=== PATIENT | female | born 1935 | race African-American/Black ===

== ENCOUNTER 2017-05-06 15:53 | Observation (INO) | payer BC ==
[~2017-05-06] VITALS: Ht 157.5 cm; Wt 63.5 kg
[~2017-05-06 15:53] MED LIST: ALLO100T PO; AMLO10TA80 PO; SIMV20TA6 PO
[2017-05-06] MEDS ORDERED: SODIUM CHLORIDE 0.9% 1,000 ML IV ONE (16:08)
[2017-05-06 17:15] LABS: HEMOGLOBIN. 10.7 g/dL (12.0-16.0); MEAN CORPUSCULAR HEMOGLOBIN 30.7 pg (28.0-32.0); MEAN CORPUSCULAR VOLUME 94.7 fL (81.0-99.0); MEAN PLATELET VOLUME 8.5 fl (7.4-10.4); PLATELET 226 x1000/uL (130-400); RED BLOOD CELL COUNT 3.48 mill/uL (4.2-5.4); RED CELL DISTRIBUTION WIDTH 13.8 % (11.6-14.6)
[2017-05-06 17:20] LABS: CHLORIDE 103 mEq/L (98-107); INR 1.1; PROTHROMBIN TIME 11.4 sec (9.4-11.6)
[2017-05-06 17:24] LABS: CLARITY URINE TURBID (CLEAR); COLOR URINE DARK YELLOW (YELLOW); GLUCOSE URINE NEGATIVE (NEGATIVE); KETONES URINE NEGATIVE (NEGATIVE); LEUKOCYTE ESTERASE URINE TRACE (NEGATIVE); NITRITE URINE NEGATIVE (NEGATIVE); OCCULT BLOOD URINE NEGATIVE (NEGATIVE); PH URINE 5.5 (4.5-8.0); PROTEIN URINE 2+ (NEGATIVE); SPECIFIC GRAVITY URINE 1.021 (1.005-1.030)
[2017-05-06 17:26] LABS: CARBON DIOXIDE 23 mEq/L (21-32); ETHANOL BLOOD < 10 mg/dL
[2017-05-06 17:29] LABS: CREATINE KINASE 182 IU/L (26-192)
[2017-05-06 17:30] LABS: TROPONIN I 0.02 ng/mL (0.00-0.04)
[2017-05-06 17:35] LABS: *AMPHETAMINES SCREEN URINE NEGATIVE (NEGATIVE); *BARBITURATES SCREEN URINE NEGATIVE (NEGATIVE); *BENZODIAZEPINES SCREEN URINE NEGATIVE (NEGATIVE); *COCAINE SCREEN URINE NEGATIVE (NEGATIVE); CANNABINOID URINE SCREEN NEGATIVE (NEGATIVE); METHADONE URINE SCREEN NEGATIVE (NEGATIVE); OPIATES URINE SCREEN NEGATIVE (NEGATIVE); PHENCYCLIDINE URINE SCREEN NEGATIVE (NEGATIVE)
[2017-05-06 17:37] LABS: PLATELET ESTIMATE NORMAL
[2017-05-06 17:42] LABS: AMMONIA 25 uMol/L (<32)
[2017-05-06 19:54] LABS: BG BASE EXCESS -3.9 mmol/L (-2.0-2.0); BG CARBOXYHEMOGLOBIN 0.3 % (0.5-1.5); BG DEOXYHEMOGLOBIN 1.5 % (0.0-5.0); BG FRACTION INSPIRED OXYGEN 32; BG HCO3 ACT 19.5 mmol/L (22.0-26.0); BG METHEMOGLOBIN 0.2 % (0.0-1.5); BG OXYGEN SATURATION 98.5 % (92.0-98.5); BG PCO2 30.1 mmHg (35.0-45.0); BG PH 7.429 (7.350-7.450); BG PO2 118.1 mmHg (75.0-100.0); BG SAMPLE SITE RIGHT RADIAL; BG TOTAL HEMOGLOBIN 10.9 g/dL (12.0-18.0); BG VENT MODE NASAL CANNULA
[2017-05-06 22:45] VITALS: BP 119/64
[2017-05-07] VITALS (7 sets, daily range): BP systolic 110–155; BP diastolic 53–80
[2017-05-07] MEDS ORDERED: IPRATROPIUM/ALBUTEROL 0.5-3(2.5)MG/3ML NEB HHN PRN (01:30)
[2017-05-07] MEDS ORDERED: MEDICATION NOT ON FORMULARY EA (Simvastatin 20 MG) PO SCH (02:15)
[2017-05-07 06:13] LABS: HEMOGLOBIN. 9.9 g/dL (12.0-16.0); MEAN CORPUSCULAR HEMOGLOBIN 31.2 pg (28.0-32.0); MEAN CORPUSCULAR VOLUME 94.4 fL (81.0-99.0); MEAN PLATELET VOLUME 8.7 fl (7.4-10.4); PLATELET 208 x1000/uL (130-400); RED BLOOD CELL COUNT 3.18 mill/uL (4.2-5.4); RED CELL DISTRIBUTION WIDTH 14.2 % (11.6-14.6)
[2017-05-07] MEDS: ENOXAPARIN 30MG/0.3ML SYR SUBCUT SCH (08:38)
[2017-05-07] MEDS ORDERED: LOSARTAN POTASSIUM 25 MG TABLET PO SCH (09:00)
[2017-05-07] MEDS ORDERED: CLONIDINE 0.1MG TABLET PO PRN (10:00)
[2017-05-07] MEDS: AMLODIPINE 10MG TABLET PO SCH (10:14)
[2017-05-07 11:24] LABS: T4 FREE 0.89 ng/dL (0.76-1.46)
[2017-05-07 11:56] LABS: VITAMIN B12 SERUM 1339 pg/mL (211-911)
[2017-05-07] MEDS: SODIUM CHL 0.45% + KCL 20MEQ/L 1,000 ML IV SCH (12:24)
[2017-05-07 15:25] LABS: PLATELET ESTIMATE NORMAL
[2017-05-07] MEDS ORDERED: ATORVASTATIN CALCIUM 10MG TABLET PO SCH (21:00)
[2017-05-08] VITALS: BP 114/60
[2017-05-08] MEDS: SODIUM CHL 0.45% + KCL 20MEQ/L 1,000 ML IV SCH (01:16)
[2017-05-08 04:00] VITALS: BP 129/61
[2017-05-08 07:16] LABS: HEMATOCRIT. 28.2 % (36.0-48.0); HEMOGLOBIN. 9.3 g/dL (12.0-16.0); MEAN CORPUSCULAR VOLUME 93.8 fL (81.0-99.0); MEAN PLATELET VOLUME 8.2 fl (7.4-10.4); PLATELET 205 x1000/uL (130-400); RED BLOOD CELL COUNT 3.01 mill/uL (4.2-5.4); RED CELL DISTRIBUTION WIDTH 14.2 % (11.6-14.6)
[2017-05-08 08:00] VITALS: BP_SYST 122; BP_SYST 128; BP_DIAS 56; BP_DIAS 65
[2017-05-08] MEDS: ENOXAPARIN 30MG/0.3ML SYR SUBCUT SCH (08:24)
[2017-05-08] MEDS: AMLODIPINE 10MG TABLET PO SCH (08:25)
[2017-05-08 08:45] LABS: PLATELET ESTIMATE NORMAL
[2017-05-08] MEDS ORDERED: LEVO25TA7 PO (08:55)
[2017-05-08 10:32] VITALS: BP 122/56
[2017-05-08 12:00] VITALS: BP 120/55
[2017-05-08 16:00] VITALS: BP 116/55
== END 2017-05-08 16:00 | disposition home or self-care (01) ==
LOC: ER 18:19 → 8WST 21:43 → INTOOBSV 21:43 → EDBEDREQ 21:47 → EDBEDREQTM 21:47 → ENRESERV 22:02
PROVIDERS: ADMIT Internal Medicine Critical Care Medicine; ATTEND Internal Medicine Critical Care Medicine
DX: R55 Syncope and collapse (principal); F03.90 Unspecified dementia, unspecified severity, without behavioral disturbance, psychotic disturbance, mood disturbance, and anxiety; M10.9 Gout, unspecified; I12.9 Hypertensive chronic kidney disease with stage 1 through stage 4 chronic kidney disease, or unspecified chronic kidney disease; N18.9 Chronic kidney disease, unspecified; E03.9 Hypothyroidism, unspecified; E78.5 Hyperlipidemia, unspecified; I51.7 Cardiomegaly; J98.11 Atelectasis; Z79.899 Other long term (current) drug therapy
CPT/HCPCS: 36415; 36600; 70450; 71010; 80048; 80053; 80061; 80305; 81001; 82140; 82375; 82550; 82607; 82805; 83036; 83540; 83550; 83605; 83880; 84439; 84443; 84484; 84550; 85025; 85610; 86850; 86900; 86901; 93005; 93880; 93970; 96360; 96361; 96372; 97162; 97530; 99285; G0378; G0482; J1650; J3480; J7030; J7620

== ENCOUNTER 2021-05-03 11:07 | Emergency (ER) | payer BC, OTHER ==
[~2021-05-03] VITALS: Ht 157.5 cm; Wt 45.0 kg
[~2021-05-03 11:07] MED LIST changes: -ALLO100T PO; +LEVO25TA7 PO; -SIMV20TA6 PO
[2021-05-03] MEDS ORDERED: SODIUM CHLORIDE 0.9% 250 ML IV ONE (11:45)
[2021-05-03 12:26] LABS: BASOPHILS % 0.4 % (0.0-2.0); EOSINOPHILS % 2.1 % (0.0-5.0); HEMATOCRIT. 39.3 % (36.0-48.0); HEMOGLOBIN. 12.8 g/dL (12.0-16.0); LYMPHOCYTES % 24.3 % (20.0-50.0); MEAN CORPUSCULAR VOLUME 95.1 fL (81.0-99.0); MEAN PLATELET VOLUME 8.9 fl (7.4-10.4); MONOCYTES % 5.7 % (2.0-8.0); NEUTROPHILS % 67.5 % (40.0-76.0); PLATELET 176 x1000/uL (130-400); RED BLOOD CELL COUNT 4.13 mill/uL (4.2-5.4); RED CELL DISTRIBUTION WIDTH 14.5 % (11.6-14.6)
[2021-05-03 12:34] LABS: CHLORIDE 115 mEq/L (98-107)
[2021-05-03 12:36] LABS: PROTHROMBIN TIME 10.8 sec (9.6-11.0)
[2021-05-03 15:17] LABS: CLARITY URINE CLEAR (CLEAR); COLOR URINE YELLOW (YELLOW); KETONES URINE NEGATIVE (NEGATIVE); LEUKOCYTE ESTERASE URINE NEGATIVE (NEGATIVE); NITRITE URINE NEGATIVE (NEGATIVE); OCCULT BLOOD URINE NEGATIVE (NEGATIVE); PROTEIN URINE 2+ (NEGATIVE); SPECIFIC GRAVITY URINE 1.017 (1.005-1.030); UROBILINOGEN URINE 0.2 E.U./dL (0.2-1.0)
[2021-05-03 17:06] VITALS: BP 130/80
== END 2021-05-03 17:50 | disposition home or self-care (01) ==
LOC: ER 11:07
DX: E86.0 Dehydration (principal); I10 Essential (primary) hypertension; F03.90 Unspecified dementia, unspecified severity, without behavioral disturbance, psychotic disturbance, mood disturbance, and anxiety
CPT/HCPCS: 36415; 71045; 80053; 81003; 83605; 83690; 83880; 84484; 85025; 85610; 87040; 93005; 96360; 99285; J7050

== ENCOUNTER 2022-01-24 13:03 | Inpatient (IN) | payer BC, MEDICARE ==
[~2022-01-24] VITALS: Ht 154.9 cm; Wt 53.1 kg
[2022-01-24 13:59] LABS: BASOPHILS % 0.8 % (0.0-2.0); EOSINOPHILS % 2.3 % (0.0-5.0); HEMATOCRIT. 37.3 % (36.0-48.0); HEMOGLOBIN. 11.9 g/dL (12.0-16.0); LYMPHOCYTES % 27.6 % (20.0-50.0); MEAN CORPUSCULAR HEMOGLOBIN 30.1 pg (28.0-32.0); MEAN CORPUSCULAR VOLUME 94.3 fL (81.0-99.0); MEAN PLATELET VOLUME 9.1 fl (7.4-10.4); MONOCYTES % 5.1 % (2.0-8.0); NEUTROPHILS % 64.2 % (40.0-76.0); PLATELET 145 x1000/uL (130-400); RED BLOOD CELL COUNT 3.96 mill/uL (4.2-5.4); RED CELL DISTRIBUTION WIDTH 14.6 % (11.6-14.6)
[2022-01-24 14:04] LABS: CHLORIDE 114 mEq/L (98-107)
[2022-01-24] MEDS ORDERED: ACETAMINOPHEN 325MG TABLET PO PRN (19:30)
[2022-01-24] MEDS ORDERED: GUAIFENESIN 200MG/10ML SUGAR FREE UDC PO PRN (19:30)
[2022-01-24] MEDS ORDERED: DOCUSATE SODIUM 100MG CAPSULE PO PRN (19:30)
[2022-01-24] MEDS ORDERED: HYDROCODONE/ACETAMINOPHEN 5/325MG TABLET PO PRN (19:30)
[2022-01-24] MEDS ORDERED: ONDANSETRON HCL 4MG/2ML INJ IV PRN (19:30)
[2022-01-24] MEDS: SODIUM CHLORIDE 0.9% 1,000 ML IV SCH ×3 (20:21→22:28)
[2022-01-24 22:03] VITALS: BP 166/107
[2022-01-25] VITALS: BP 155/67
[2022-01-25 04:00] VITALS: BP 112/80
[2022-01-25] MEDS: SODIUM CHLORIDE 0.9% 1,000 ML IV SCH (04:31)
[2022-01-25 08:00] VITALS: BP 96/69
[2022-01-25] MEDS: ENOXAPARIN 30MG/0.3ML SYR SUBCUT SCH (09:05)
[2022-01-25 09:41] LABS: BASOPHILS % 0.5 % (0.0-2.0); EOSINOPHILS % 2.5 % (0.0-5.0); HEMATOCRIT. 38.2 % (36.0-48.0); HEMOGLOBIN. 12.2 g/dL (12.0-16.0); LYMPHOCYTES % 30.3 % (20.0-50.0); MEAN PLATELET VOLUME 9.4 fl (7.4-10.4); MONOCYTES % 8.1 % (2.0-8.0); NEUTROPHILS % 58.6 % (40.0-76.0); PLATELET 169 x1000/uL (130-400); RED BLOOD CELL COUNT 4.07 mill/uL (4.2-5.4); RED CELL DISTRIBUTION WIDTH 14.5 % (11.6-14.6)
[2022-01-25 09:54] LABS: CHLORIDE 114 mEq/L (98-107)
[2022-01-25 12:00] VITALS: BP 150/90
[2022-01-25] MEDS: THEOPHYLLINE ANHYDROUS 80 MG/15 ML 120ML PO SCH ×2 (13:50→21:48)
[2022-01-25] MEDS ORDERED: NALOXONE HCL 0.4MG/ML VIAL IV PRN (14:30)
[2022-01-25 16:00] VITALS: BP 166/82
[2022-01-25] MEDS: AMLODIPINE 5MG TABLET PO SCH (17:21)
[2022-01-25 20:00] VITALS: BP 155/72
[2022-01-26] VITALS: BP 136/74
[2022-01-26 04:00] VITALS: BP 141/79
[2022-01-26 08:00] VITALS: BP 154/82
[2022-01-26 08:18] LABS: BASOPHILS % 0.4 % (0.0-2.0); EOSINOPHILS % 2.6 % (0.0-5.0); HEMATOCRIT. 39.7 % (36.0-48.0); LYMPHOCYTES % 32.4 % (20.0-50.0); MEAN CORPUSCULAR HEMOGLOBIN 30.3 pg (28.0-32.0); MEAN CORPUSCULAR VOLUME 92.1 fL (81.0-99.0); MONOCYTES % 8.4 % (2.0-8.0); NEUTROPHILS % 56.2 % (40.0-76.0); PLATELET 198 x1000/uL (130-400); RED BLOOD CELL COUNT 4.31 mill/uL (4.2-5.4); RED CELL DISTRIBUTION WIDTH 14.2 % (11.6-14.6)
[2022-01-26 08:34] LABS: CHLORIDE 111 mEq/L (98-107)
[2022-01-26] MEDS: ENOXAPARIN 30MG/0.3ML SYR SUBCUT SCH (09:05)
[2022-01-26] MEDS: THEOPHYLLINE ANHYDROUS 80 MG/15 ML 120ML PO SCH (09:05)
[2022-01-26] MEDS: AMLODIPINE 5MG TABLET PO SCH (09:05)
[2022-01-26 12:00] VITALS: BP 132/66
[2022-01-26 16:00] VITALS: BP 141/84
[2022-01-26 20:00] VITALS: BP 121/70
[2022-01-27] VITALS (7 sets, daily range): BP systolic 99–178; BP diastolic 78–95
[2022-01-27] MEDS: AMLODIPINE 5MG TABLET PO SCH ×2 (08:32→09:05)
[2022-01-27] MEDS: ENOXAPARIN 30MG/0.3ML SYR SUBCUT SCH (08:48)
[2022-01-27] MEDS ORDERED: THEOPHYLLINE ANHYDROUS 80 MG/15 ML 120ML PO SCH (09:00)
[2022-01-28 00:28] VITALS: BP 169/104
[2022-01-28 04:00] VITALS: BP 144/92
[2022-01-28 07:58] VITALS: BP 185/101
[2022-01-28] MEDS: AMLODIPINE 5MG TABLET PO SCH (08:32)
[2022-01-28] MEDS: ENOXAPARIN 30MG/0.3ML SYR SUBCUT SCH (08:32)
[2022-01-28] MEDS ORDERED: HYDRALAZINE 20MG/ML VIAL IV PRN (10:15)
[2022-01-28 11:40] VITALS: BP 96/66
[2022-01-28] MEDS ORDERED: CLONIDINE 0.1MG TABLET PO SCH (12:00)
[2022-01-28] MEDS ORDERED: HYDRALAZINE HCL 50MG TABLET PO SCH (14:00)
[2022-01-28 14:38] VITALS: BP 96/66
[2022-01-29] MEDS ORDERED: AMLODIPINE 5MG TABLET PO SCH (09:00)
[2022-01-29] MEDS ORDERED: MAGNESIUM OXIDE 400MG TABLET PO SCH (09:00)
== END 2022-01-28 16:45 | disposition home or self-care (01) | DRG 73 ==
LOC: ER 13:03 → EDBEDREQTM 19:03 → EDBEDREQ 19:03 → ENRESERV 20:34 → 7WST 22:51
PROVIDERS: ADMIT Hospitalist; ATTEND Hospitalist
DX: G90.8 Other disorders of autonomic nervous system (principal); G93.41 Metabolic encephalopathy; N17.9 Acute kidney failure, unspecified; E44.1 Mild protein-calorie malnutrition; E86.0 Dehydration; F03.90 Unspecified dementia, unspecified severity, without behavioral disturbance, psychotic disturbance, mood disturbance, and anxiety; I25.10 Atherosclerotic heart disease of native coronary artery without angina pectoris; I44.0 Atrioventricular block, first degree; E03.9 Hypothyroidism, unspecified; I10 Essential (primary) hypertension; R00.1 Bradycardia, unspecified; Z66 Do not resuscitate; M10.9 Gout, unspecified; I36.1 Nonrheumatic tricuspid (valve) insufficiency; Z68.22 Body mass index [BMI] 22.0-22.9, adult
CPT/HCPCS: 36415; 80048; 80053; 83735; 84443; 84484; 85025; 93005; 93306; 93970; 99285; J1650